=== PATIENT | male | born 1985 | race Caucasian/White ===

== ENCOUNTER 2016-08-06 20:09 | Emergency (ER) | payer SELFPAY ==
[2016-08-06] MEDS ORDERED: ONDANSETRON 4 MG ODT STARTER PACK 2 TAB BTL PO STA (21:51)
--- NOTE | 2016-08-06 22:12 | XR ---
EXAMINATION TYPE: XR chest 2V DATE OF EXAM: 08/06/2016 9:58 PM COMPARISON: March 13, 2010 HISTORY: Pain and weakness and body aches and cough TECHNIQUE: Frontal and lateral views of the chest are obtained. FINDINGS: There is no focal air space opacity, pleural effusion, or pneumothorax seen. The cardiac silhouette size is within normal limits. The osseous structures are intact. IMPRESSION: No acute cardiopulmonary process.
--- NOTE | 2016-08-06 22:21 | ED ---
Nausea/Vomiting/Diarrhea HPI - General Chief complaint: Nausea/Vomiting/Diarrhea Stated complaint: vomiting Time Seen by Provider: 08/06/16 21:19 Source: patient, RN notes reviewed Mode of arrival: ambulatory Limitations: no limitations - History of Present Illness Initial comments: Patient is a 30-year-old male with intermittent vomiting and feeling generally ill. Patient ports that he thinks he has the flu. Patient states that he has been battling this illness off and on for the past week. Patient states that he's had intermittent fever. He does report productive cough. He denies any chest pain or shortness of breath or specific abdominal pain. Patient states that he has had no diarrhea. Last time he vomited was right prior to arriving to emergency Department. Patient denies any blood in his stool or vomit. Patient denies any history of sick contacts. Patient is a smoker. He does have a productive cough. - Related Data Previous Rx's Medication Instructions Recorded Albuterol Inhaler [Ventolin Hfa 1 - 2 puff INHALATION Q6HR PRN #1 08/06/16 Inhaler] inhaler Azithromycin [Zithromax Z-pack] 250 mg PO DIRECTED #6 tab 08/06/16 Ondansetron Odt [Zofran Odt] 4 mg PO Q8HR PRN #12 tab 08/06/16 Allergies Allergy/AdvReac Type Severity Reaction Status Date / Time No Known Allergies Allergy Verified 08/06/16 21:16 Review of Systems ROS Statement: Those systems with pertinent positive or pertinent negative responses have been documented in the HPI. ROS Other: All systems not noted in ROS Statement are negative. Past Medical History Past Medical History: No Reported History History of Any Multi-Drug Resistant Organisms: None Reported Past Surgical History: No Surgical Hx Reported Past Psychological History: Anxiety Smoking Status: Current every day smoker Past Alcohol Use History: None Reported Past Drug Use History: None Reported General Exam Limitations: no limitations General appearance: alert, in no apparent distress Head exam: Present: atraumatic, normocephalic, normal inspection Eye exam: Present: normal appearance, PERRL, EOMI. Absent: scleral icterus, conjunctival injection, periorbital swelling ENT exam: Present: normal exam, mucous membranes moist Neck exam: Present: normal inspection. Absent: tenderness, meningismus, lymphadenopathy Respiratory exam: Present: normal lung sounds bilaterally, other (productive cough). Absent: respiratory distress, wheezes, rales, rhonchi, stridor Cardiovascular Exam: Present: regular rate, normal rhythm, normal heart sounds. Absent: systolic murmur, diastolic murmur, rubs, gallop, clicks GI/Abdominal exam: Present: soft, normal bowel sounds. Absent: distended, tenderness, guarding, rebound, rigid Extremities exam: Present: normal inspection, full ROM, normal capillary refill. Absent: tenderness, pedal edema, joint swelling, calf tenderness Back exam: Present: normal inspection Neurological exam: Present: alert, oriented X3, CN II-XII intact Psychiatric exam: Present: normal affect, normal mood Skin exam: Present: warm, dry, intact, normal color. Absent: rash Course Vital Signs 08/06/16 08/06/16 20:48 23:28 Temperature 98.3 F 99.0 F Pulse Rate 95 86 Respiratory 18 20 Rate Blood Pressure 124/60 123/57 O2 Sat by Pulse 97 96 Oximetry Medical Decision Making - Medical Decision Making Patient is a 30-year-old male with intermittent vomiting and feeling generally ill. Patient ports that he thinks he has the flu. Patient states that he has been battling this illness off and on for the past week. Patient states that he's had intermittent fever. He does report productive cough. He denies any chest pain or shortness of breath or specific abdominal pain. Patient states that he has had no diarrhea. 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 CXR and influenza obtained. Patient given PO zofran and tolerated PO challenge. No abdominal tenderness. CXR is negative for focal pneumonia, however given patients productive cough patient will be started on Zithromycin. Patient advised to follow up with PCP. REturn parameters discussed. - Lab Data Lab Results 08/06/16 08/06/16 Range/Units 21:30 22:00 Influenza Type A RNA Not Detected (Not Detectd) Influenza Type B (PCR) Not Detected (Not Detectd) Group A Strep Rapid Negative (Negative) - Radiology Data Radiology results: report reviewed CXR negative for any acute process. Disposition Clinical Impression: Vomiting, Community acquired pneumonia Disposition: HOME SELF-CARE Condition: Good Instructions: Community Acquired Pneumonia (ED) Additional Instructions: Patient has rest, increase fluids and completely antibiotic prescription. Follow-up with primary care provider. Return to emergency Department if any alarming signs or symptoms occur. Prescriptions: Albuterol Inhaler [Ventolin Hfa Inhaler] 1 - 2 puff INHALATION Q6HR PRN #1 inhaler PRN Reason: Shortness Of Breath Azithromycin [Zithromax Z-pack] 250 mg PO DIRECTED #6 tab Ondansetron Odt [Zofran Odt] 4 mg PO Q8HR PRN #12 tab PRN Reason: Nausea Referrals: None,Stated [Primary Care Provider] - 1-2 days Ciara Ascencio MD [STAFF PHYSICIAN] - 1-2 days Time of Disposition: 23:14
[2016-08-06 23:29] VITALS: BP 123/57; PULSE 86; RESP 20; TEMP 99
== END 2016-08-06 23:29 | disposition home or self-care (01) ==
LOC: EC 20:09
DX: J18.9 Pneumonia, unspecified organism (principal); R11.2 Nausea with vomiting, unspecified; F17.200 Nicotine dependence, unspecified, uncomplicated
CPT/HCPCS: 99284; 87081; 87430; 87502; 71020; S0119

== ENCOUNTER 2016-08-31 21:10 | Emergency (ER) | payer OTHER ==
[2016-08-31] MEDS ORDERED: ONDANSETRON 4 MG/2 ML VIAL IVP STA (22:56)
[2016-08-31] MEDS ORDERED: SODIUM CHLORIDE 0.9% 2,000 ML IV STA (22:56)
[2016-08-31] MEDS ORDERED: ACETAMINOPHEN TAB 500 MG TAB PO STA (22:56)
[2016-08-31 23:13] LABS: Basophils # (A) 0.1 k/uL (0-0.2); Basophils % (A) 1 %; CH 31.1; CHCM 35.7; Eosinophils # (A) 0.2 k/uL (0-0.7); Eosinophils % (A) 2 %; HCT 46.4 % (39.0-53.0); HDW 2.85; HGB 16.2 gm/dL (13.0-17.5); Luc # (Auto) 0.26; Luc % (Auto) 2; Lymphocytes # (A) 3.7 k/uL (1.0-4.8); Lymphocytes % (A) 24 %; MCH 30.5 pg (25.0-35.0); MCHC 34.9 g/dL (31.0-37.0); MCV 87.5 fL (80.0-100.0); Mean Platelet Volume 6.4; Monocytes # (A) 0.8 k/uL (0-1.0); Monocytes % (A) 5 %; Neutrophils # (A) 10.4 k/uL (1.3-7.7); Neutrophils % (A) 67 %; RBC 5.31 m/uL (4.30-5.90); RDW 12.8 % (11.5-15.5); WBC 15.4 k/uL (3.8-10.6); WBC (Perox) 15.52
[2016-08-31 23:19] LABS: Appearance,Urine Clear (Clear); Bacteria,Urine Rare /hpf; Bilirubin,Urine Negative (Negative); Glucose,Urine (UA) 1+ (Negative); Ketones,Urine Negative (Negative); Leukocyte Esterase,Urine Trace (Negative); Mucus,Urine Many /hpf; Nitrite,Urine Negative (Negative); Particle Count 8481; Protein,Urine 1+ (Negative); RBC,Urine 22 /hpf (0-5); Specific Gravity,Urine 1.025 (1.001-1.035); Squamous Epithelial Cell,Urine <1 /hpf (0-4); UA Billing (MACRO vs. MICRO) MICRO; WBC,Urine 18 /hpf (0-5)
--- NOTE | 2016-08-31 23:20 | ED ---
Nausea/Vomiting/Diarrhea HPI - General Chief complaint: Nausea/Vomiting/Diarrhea Stated complaint: sore throat Time Seen by Provider: 08/31/16 22:35 Source: patient, RN notes reviewed Mode of arrival: ambulatory Limitations: no limitations - History of Present Illness Initial comments: This is a 31-year-old male she complaint of sore throat and fatigue, diarrhea and cough for approximately 3 weeks. Patient was treated with azithromycin is totally states that he is not getting any better after having this. Patient states that he continues to have the diarrhea and feels like he is dehydrated. Patient denies any other associated symptoms including chest pain or shortness of breath. He denies any [place] abdominal pain. He denies anything maybe a past medical history. - Related Data Previous Rx's Medication Instructions Recorded Doxycycline [Vibramycin] 100 mg PO Q12HR #14 capsule 09/01/16 Loperamide [Imodium] 2 mg PO DAILY #12 capsule 09/01/16 Allergies Allergy/AdvReac Type Severity Reaction Status Date / Time No Known Allergies Allergy Verified 08/31/16 21:28 Review of Systems ROS Statement: Those systems with pertinent positive or pertinent negative responses have been documented in the HPI. ROS Other: All systems not noted in ROS Statement are negative. Past Medical History Past Medical History: No Reported History History of Any Multi-Drug Resistant Organisms: None Reported Past Surgical History: No Surgical Hx Reported Past Psychological History: Anxiety Smoking Status: Current every day smoker Past Alcohol Use History: None Reported Past Drug Use History: None Reported General Exam - General Exam Comments Initial Comments: Well appearing 31 year old male, no distress. Limitations: no limitations General appearance: alert, in no apparent distress Head exam: Present: atraumatic, normocephalic, normal inspection Eye exam: Present: normal appearance, PERRL, EOMI. Absent: scleral icterus, conjunctival injection, periorbital swelling ENT exam: Present: normal exam, normal oropharynx (swollen erythematous oropharynx. ), mucous membranes moist, TM's normal bilaterally, normal external ear exam Neck exam: Present: normal inspection, full ROM. Absent: tenderness, meningismus, lymphadenopathy Respiratory exam: Present: normal lung sounds bilaterally. Absent: respiratory distress, wheezes, rales, rhonchi, stridor Cardiovascular Exam: Present: regular rate, normal rhythm, normal heart sounds. Absent: systolic murmur, diastolic murmur, rubs, gallop, clicks GI/Abdominal exam: Present: soft, normal bowel sounds. Absent: distended, tenderness, guarding, rebound, rigid Extremities exam: Present: normal inspection, full ROM, normal capillary refill. Absent: tenderness, pedal edema, joint swelling, calf tenderness Back exam: Present: normal inspection, full ROM Neurological exam: Present: alert, oriented X3, CN II-XII intact Psychiatric exam: Present: normal affect, normal mood Skin exam: Present: warm, dry, intact, normal color. Absent: rash Course Vital Signs 08/31/16 08/31/16 09/01/16 21:25 23:42 00:57 Temperature 98.4 F 98.5 F 98.4 F Pulse Rate 104 H 75 79 Respiratory 20 18 18 Rate Blood Pressure 122/73 111/55 106/53 O2 Sat by Pulse 96 95 95 Oximetry Medical Decision Making - Medical Decision Making This is a 31-year-old male she complaint of sore throat and fatigue, diarrhea and cough for approximately 3 weeks. Patient was treated with azithromycin is totally states that he is not getting any better after having this. Patient states that he continues to have the diarrhea and feels like he is dehydrated. Patient denies any other associated symptoms including chest pain or shortness of breath. Patient labwork obtained, he does have elevated WBC. Patient continues has erythematous oropharynx. Patietn urinalysis shows signs of infection. Patient denies STD symptoms. Patient case discusseed with Dr. Coronel. Patient given Rocephin IV and discharged with doxycycline. Discussed follow up with PCP. Patient agrees with treatmetn plan and will comply. - Lab Data Result diagrams: 08/31/16 22:59 08/31/16 22:59 Lab Results 08/31/16 08/31/16 08/31/16 Range/Units 22:59 22:59 22:59 WBC 15.4 H (3.8-10.6) k/uL RBC 5.31 (4.30-5.90) m/uL Hgb 16.2 (13.0-17.5) gm/dL Hct 46.4 (39.0-53.0) % MCV 87.5 (80.0-100.0) fL MCH 30.5 (25.0-35.0) pg MCHC 34.9 (31.0-37.0) g/dL RDW 12.8 (11.5-15.5) % Plt Count 266 (150-450) k/uL Neutrophils % 67 % Lymphocytes % 24 % Monocytes % 5 % Eosinophils % 2 % Basophils % 1 % Neutrophils # 10.4 H (1.3-7.7) k/uL Lymphocytes # 3.7 (1.0-4.8) k/uL Monocytes # 0.8 (0-1.0) k/uL Eosinophils # 0.2 (0-0.7) k/uL Basophils # 0.1 (0-0.2) k/uL Sodium 137 (137-145) mmol/L Potassium 4.3 (3.5-5.1) mmol/L Chloride 100 (98-107) mmol/L Carbon Dioxide 30 (22-30) mmol/L Anion Gap 7 mmol/L BUN 16 (9-20) mg/dL Creatinine 1.02 (0.66-1.25) mg/dL Est GFR (MDRD) Af Amer >60 (>60 ml/min/1.73 sqM) Est GFR (MDRD) Non-Af >60 (>60 ml/min/1.73 sqM) Glucose 125 H (74-99) mg/dL Calcium 9.3 (8.4-10.2) mg/dL Total Bilirubin 1.0 (0.2-1.3) mg/dL AST 32 (17-59) U/L ALT 52 (21-72) U/L Alkaline Phosphatase 60 (38-126) U/L Total Protein 7.7 (6.3-8.2) g/dL Albumin 4.2 (3.5-5.0) g/dL Amylase 64 (30-110) U/L Lipase 74 (23-300) U/L Urine Color Urine Appearance (Clear) Urine pH (5.0-8.0) Ur Specific [place] (1.001-1.035) Urine Protein (Negative) Urine Glucose (UA) (Negative) Urine Ketones (Negative) Urine Blood (Negative) Urine Nitrite (Negative) Urine Bilirubin (Negative) Urine Urobilinogen (<2.0) mg/dL Ur Leukocyte Esterase (Negative) Urine RBC (0-5) /hpf Urine WBC (0-5) /hpf Ur Squamous Epith Cells (0-4) /hpf Urine Bacteria (None) /hpf Urine Mucus (None) /hpf Heterophile Antibody Negative (Negative) N. gonorrhoeae Source N.gonorrhoeae RNA (TMA) (Not detected) Group A Strep Rapid (Negative) 08/31/16 08/31/16 08/31/16 Range/Units 22:59 22:59 22:59 WBC (3.8-10.6) k/uL RBC (4.30-5.90) m/uL Hgb (13.0-17.5) gm/dL Hct (39.0-53.0) % MCV (80.0-100.0) fL MCH (25.0-35.0) pg MCHC (31.0-37.0) g/dL RDW (11.5-15.5) % Plt Count (150-450) k/uL Neutrophils % % Lymphocytes % % Monocytes % % Eosinophils % % Basophils % % Neutrophils # (1.3-7.7) k/uL Lymphocytes # (1.0-4.8) k/uL Monocytes # (0-1.0) k/uL Eosinophils # (0-0.7) k/uL Basophils # (0-0.2) k/uL Sodium (137-145) mmol/L Potassium (3.5-5.1) mmol/L Chloride (98-107) mmol/L Carbon Dioxide (22-30) mmol/L Anion Gap mmol/L BUN (9-20) mg/dL Creatinine (0.66-1.25) mg/dL Est GFR (MDRD) Af Amer (>60 ml/min/1.73 sqM) Est GFR (MDRD) Non-Af (>60 ml/min/1.73 sqM) Glucose (74-99) mg/dL Calcium (8.4-10.2) mg/dL Total Bilirubin (0.2-1.3) mg/dL AST (17-59) U/L ALT (21-72) U/L Alkaline Phosphatase (38-126) U/L Total Protein (6.3-8.2) g/dL Albumin (3.5-5.0) g/dL Amylase (30-110) U/L Lipase (23-300) U/L Urine Color Yellow Urine Appearance Clear (Clear) Urine pH 6.0 (5.0-8.0) Ur Specific [place] 1.025 (1.001-1.035) Urine Protein 1+ H (Negative) Urine Glucose (UA) 1+ H (Negative) Urine Ketones Negative (Negative) Urine Blood Small H (Negative) Urine Nitrite Negative (Negative) Urine Bilirubin Negative (Negative) Urine Urobilinogen 3.0 (<2.0) mg/dL Ur Leukocyte Esterase Trace H (Negative) Urine RBC 22 H (0-5) /hpf Urine WBC 18 H (0-5) /hpf Ur Squamous Epith Cells <1 (0-4) /hpf Urine Bacteria Rare H (None) /hpf Urine Mucus Many H (None) /hpf Heterophile Antibody (Negative) N. gonorrhoeae Source See Below N.gonorrhoeae RNA (TMA) Not detected (Not detected) Group A Strep Rapid Negative (Negative) Disposition Clinical Impression: Nausea & vomiting, Tonsillitis, UTI (urinary tract infection) Disposition: HOME SELF-CARE Condition: Good Instructions: Acute Diarrhea (ED), Urinary Tract Infection in Men (ED) Additional Instructions: Patient has a completely anabiotic prescription. Patient can take nausea and diarrhea medication as well. Return to the emergency department if any alarming signs or symptoms occur. Prescriptions: Doxycycline [Vibramycin] 100 mg PO Q12HR #14 capsule Loperamide [Imodium] 2 mg PO DAILY #12 capsule Referrals: Ciara Ascencio MD [STAFF PHYSICIAN] - 1-2 days Time of Disposition: 00:46
--- NOTE | 2016-08-31 23:20 | XR ---
Exam: FILM CXR 08/31/16 Chest PA and lateral views INDICATION: Pain COMPARISON: Chest radiograph exam 08/06/16 FINDINGS: The cardiomediastinal silhouette is within normal limits. Lungs are clear. No pleural effusions. Bony elements are within normal limits for age. No acute osseous abnormality. No free air under the diaphragm. IMPRESSION: No acute cardiopulmonary disease. Lungs are clear. Heart size normal.
--- NOTE | 2016-08-31 23:21 | XR ---
Exam: FILM KUB INDICATION: Pain COMPARISON: None FINDINGS: 2 frontal views of the abdomen obtained. Bowel gas pattern non-obstructive. No free air under diaphragm. Few scattered air-filled loops of small bowel in the lower abdomen are noted caliber normal. No radiopaque renal calculi identified. Osseous structures intact. IMPRESSION: Bowel gas pattern non-obstructive no free air under the diaphragm. Few scattered air-filled loops of small bowel in the lower abdomen are noted with caliber within normal limits which can represent a mild partial ileus pattern. No radiopaque renal calculi identified.
[2016-08-31 23:27] LABS: ALT 52 U/L (21-72); AST 32 U/L (17-59); Alkaline Phosphatase 60 U/L (38-126); Amylase 64 U/L (30-110); Anion Gap 7 mmol/L; Blood Urea Nitrogen 16 mg/dL (9-20); Calcium 9.3 mg/dL (8.4-10.2); Carbon Dioxide 30 mmol/L (22-30); Chloride 100 mmol/L (98-107); Glucose 125 mg/dL (74-99); Non-African American GFR(MDRD) >60 (>60 ml/min/1.73 sqM); Potassium 4.3 mmol/L (3.5-5.1); Sodium 137 mmol/L (137-145); Total Protein 7.7 g/dL (6.3-8.2)
[2016-08-31 23:43] VITALS: RESP 18
[2016-09-01] MEDS ORDERED: methylPREDNISolone SOD SUCCI 125 MG/2 ML VIAL IV STA (00:25)
[2016-09-01] MEDS ORDERED: cefTRIAXone 250 MG VIAL IM STA (00:45)
[2016-09-01] MEDS ORDERED: DOXYCYCLINE 50 MG CAP PO STA (00:49)
[2016-09-01 00:58] VITALS: BP 106/53; PULSE 79; TEMP 98.4
== END 2016-09-01 01:20 | disposition home or self-care (01) ==
LOC: EC 21:10
DX: R11.2 Nausea with vomiting, unspecified (principal); N39.0 Urinary tract infection, site not specified; J03.90 Acute tonsillitis, unspecified; R19.7 Diarrhea, unspecified; F17.200 Nicotine dependence, unspecified, uncomplicated
CPT/HCPCS: 99284; 96374; 96375; 96361 ×2; 96372; 36415; 80053; 82150; 83690; 85025; 86308; 81001; 87040; 87086; 87081; 87430; 71020; 74000; J2930; J2405; J0696